=== PATIENT | male | born 2005 | race Two or more races ===

== ENCOUNTER 2024-08-22 13:33 | Outpatient (RCR) | payer BC, MEDICAID, SELFPAY ==
--- NOTE | 2024-08-22 13:43 | PT.OIERPT ---
PT OP Initial Eval Patient Information Outpatient Physical Therapy Treatment Date: 08/22/24 Visit Reasons: neck pain Medical Diagnosis: M54.2 Treatment Dx #1: neck pain Start of Care: 08/22/24 Date of Onset: 1 yr ago Smoking Status Smoking Status: Never smoker Initial Assessment Subjective: Pt is 19 yr old male who reports neck pain x1 yr after having head forward and it getting stuck and not being able to bring the head back. 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 Pt feels the pain as soon as he wakes up, antiinflammatories help as well as stretching. He looks at a screen a lot of the time and says he probably slouches. PMH: HTN Imaging: with provider Pt goal: to get rid of the neck pain Objective: C/S AROM: ? Ext 80% with a feeling of instability at end-range ? Flexion full with slight onset of ssx ? L rotation: full ? R rotation: full ? B SB: 25 deg with a feeling of instability at end-range ? C/S compression: no change ? Distraction: no change ? TTP: non TTP of lower C/S paraspinals around C4-7 and UT?s, pain is deeper ? B shoulder AROM: full FF ? flexion rotation test: negative for C1-2 limitations Sitting posture: fwd head and shoulder, can correct with cues. Assessment: Pt presentation consistent with cervicothoracic junction pain and weakness likely involving C7-T1 levels. Pt requires skilled therapy to meet goals and has fair rehab potential. Short Term and Resident Care Provider Goals 1. Ind with HEP 2. Pt will extend and SB neck without instability 3. Pt will have at least 50% less neck pain upon waking up 4. Pt will sit with neutral head and shoulder posture x5' Treatment Plan ? 1. Manual therapy ? 2. Therex ? 3. Modalities as indicated, moist heat, ice, estim, mechanical traction Frequency and Duration: 1x a week for 6 weeks plus evaluation Certification Dates: 08/22/24 to Procedure Charges OP PT Eval Mod Complex 30 minutes: Yes
== END 2024-08-27 23:59 | disposition home or self-care (01) ==
LOC: CPTX 13:33
PROVIDERS: PCP Student in an Organized Health Care Education/Training Program; Referring Provider Student in an Organized Health Care Education/Training Program; Visit Provider Student in an Organized Health Care Education/Training Program
DX: M54.2 Cervicalgia (principal); I10 Essential (primary) hypertension
CPT/HCPCS: 97162

== ENCOUNTER 2024-09-10 11:00 | Outpatient (RCR) | payer BC, MEDICAID, SELFPAY ==
--- NOTE | 2024-08-28 14:13 | PT.ODAYNRPT ---
PT Outpatient Daily Note OP Daily Note Outpatient Physical Therapy Treatment Date: 08/28/24 Visit Reasons: Neck pain Subjective: Same as eval Objective: See F/S for therex MHP x5' C/S MT: [facility] B UT's x5' Assessment: Good demo of cervical retraction. Min/mod TTP of B UT's with manual therapy Plan: Continue per POC Length of Time (minutes) of Treatment: 30 Minutes Procedure Charges Therapeutic Exercise 30 minutes: Yes
--- NOTE | 2024-09-10 11:43 | PT.ODAYNRPT ---
PT Outpatient Daily Note OP Daily Note Outpatient Physical Therapy Treatment Date: 09/10/24 Visit Reasons: Neck pain Subjective: Doing HEP with less neck pain but it still hurts when he wakes up Objective: See F/S for therex MHP x5' C/S MT: [facility] CTJ's in prone x5' Assessment: Good demo of cervical retraction. Plan: Continue per POC Length of Time (minutes) of Treatment: 30 Minutes Procedure Charges Therapeutic Exercise 30 minutes: Yes
--- NOTE | 2024-09-20 18:41 | PT.ODS1RPT ---
PT OP Progress/Discharge Note Date of Service: 09/20/24 Progress Note/DC Note Progress Note/Discharge Note: DC Note Patient Information Visit Reasons: Neck pain Service Continue Service or Discharge: Discharge Discharge Date: 09/20/24 Status Assessment: Pt attended the initial evaluation and 2 Rx visits and 2 consecutive no shows which is not in compliance with attendance policy. Pt?s attendance is not consistent enough to make progress with goals. Thank you for your referrals. Plan: D/C
== END 2024-09-26 23:59 | disposition home or self-care (01) ==
LOC: CPTX 11:00
PROVIDERS: PCP Student in an Organized Health Care Education/Training Program; Referring Provider Student in an Organized Health Care Education/Training Program; Visit Provider Student in an Organized Health Care Education/Training Program
DX: M54.2 Cervicalgia (principal); I10 Essential (primary) hypertension
CPT/HCPCS: 97110